=== PATIENT | female | born 1970 ===

== ENCOUNTER 2024-01-13 07:03 | Day surgery (SDC) | payer OTHER, SELFPAY ==
[2023-11-04 13:23] VITALS: BMI 26.4
[2023-12-28 13:33] VITALS: BMI 25.7
[2024-01-13 07:46] VITALS: BP 118/85; PULSE 70; RESP 16; TEMP 36.6; O2SAT 99; BMI 25.4
[2024-01-13] MEDS: LACTATED RINGERS 1,000 ML 150 ML IV CONT (08:03)
--- NOTE | 2024-01-13 08:07 | P.PNAN_ITS ---
Anes - Initial Pre Proc Eval Procedure: Operation Date: 01/13/24 09:00 Proposed Procedures p Colonoscopy - Nilo Mark MD Date/Time: 01/13/24 08:07 Surgeon: Nilo Mark MD Pre Op Diagnosis: History of colong polyps Patient Data Age: 53 Gender: F Height: 1.65 m Weight: 69.5 kg Last Vital Signs Temp 36.6 C 01/13/24 07:46 Pulse 70 01/13/24 07:46 Resp 16 01/13/24 07:46 BP 118/85 01/13/24 07:46 Pulse Ox 99 01/13/24 07:46 O2 Del Method Room Air 01/13/24 07:46 Allergies Allergy/AdvReac Type Severity Reaction Status Date / Time No Known Allergies Allergy Verified 01/13/24 07:45 Home Medications Medication Instructions Recorded Confirmed Type Lactobacillus 1 cap PO DAILY 12/28/23 01/13/24 History acidophilus-Bifidobac.animalis 2.5 billion cell capsule (Daily Probiotic) famotidine 20 mg tablet 20 mg PO DAILY 12/28/23 01/13/24 History multivit with minerals-iron 18 1 tablet PO DAILY 12/28/23 01/13/24 History mg-folic ac 400 mcg-vit K 25 mcg tablet (Adults Multivitamin) Patient hx anesthesia problems: none Family hx anesthesia problems: none Results Review: All pre-operative results and documents have been reviewed as part of the pre- operative evaluation. [facility] Past Medical History Medical History (Updated 01/13/24 @ 08:07 by Pastor Reyes MD) GERD (gastroesophageal reflux disease) Social History Social History Smoking packs per day: 0.5 Smoking cigarettes per day: 10.0 Years smoked: 30 Smoking pack-years: 15.00 Smoking status: Current every day smoker Tobacco type: cigarettes Alcohol intake: current Substance use: never Substance use type: does not use Living arrangements: with family Spiritual care concerns: No Anes - Eval Final PreProcedure Day of Procedure 01/13/24 08:07 Patient weight: normal Heart: regular rate and rhythm Lungs: clear to auscultation Airway: Mallampati scale class II Neurological: alert and oriented Last oral intake: >/= 8 hours ASA classification: II Emergent: no Anesthetic plan: proceed Anesthesia type and monitoring: general GIVS and standard monitoring Results Review: All pre-operative results and documents have been reviewed as part of the pre- operative evaluation. Informed Consent: The patient's anesthetic plan and its attendant risks and benefits were discussed with the patient/family/POA. Questions were solicited and answers provided to the satisfaction of the patient/family/POA.
--- NOTE | 2024-01-13 08:10 | PM.HPGS ---
History of Present Illness History of Present Illness Consent: Risks, benefits, and alternatives have been discussed and questions answered. Patient agrees to proceed with procedure. Chief complaint: History of colon polyp Narrative: Beronica Lucero is a 53 year old female presents for screening colonoscopy. Patient was found to have several cecal colon polyps at time of previous colonoscopy 6 years ago. Patient reports her current weight appetite and bowel movements are normal. Patient that his abdominal pain. She has had no bleeding. Family history is noncontributory. Review of Systems Review of Systems: All systems reviewed & are unremarkable except as noted in HPI and below PMFSH Past Medical History Medical History (Updated 01/13/24 @ 08:11 by Nilo Mark MD) GERD (gastroesophageal reflux disease) Social History Social History Smoking packs per day: 0.5 Smoking cigarettes per day: 10.0 Years smoked: 30 Smoking pack-years: 15.00 Smoking status: Current every day smoker Tobacco type: cigarettes Alcohol intake: current Substance use: never Substance use type: does not use Living arrangements: with family Spiritual care concerns: No Meds Home Medications and Allergies Home Medications Medication Instructions Recorded Confirmed Type Lactobacillus 1 cap PO DAILY 12/28/23 01/13/24 History acidophilus-Bifidobac.animalis 2.5 billion cell capsule (Daily Probiotic) famotidine 20 mg tablet 20 mg PO DAILY 12/28/23 01/13/24 History multivit with minerals-iron 18 1 tablet PO DAILY 12/28/23 01/13/24 History mg-folic ac 400 mcg-vit K 25 mcg tablet (Adults Multivitamin) Allergies Allergy/AdvReac Type Severity Reaction Status Date / Time No Known Allergies Allergy Verified 01/13/24 07:45 Vital Signs Vital Signs - 24 hr 01/13/24 07:46 Temperature 98 F Pulse Rate 70 Respiratory Rate 16 Blood Pressure 118/85 Pulse Oximetry 99 Oxygen Delivery Room Air Exam Narrative: Physical exam reveals patient to be alert. Vital signs stable. Exam is unremarkable. Patient is anicteric. Lungs are clear to auscultation and percussion heart is without murmur or extra sounds. Abdomen bowel sounds are present soft nontender with no hepatosplenomegaly. Digital external rectal exam is normal. Assessment and Plan Assessment and plan (1) History of colon polyps: Code(s): Z86.010 - Personal history of colonic polyps Status: Acute Assessment and Plan: Patient has a history of several benign polyps removed from the cecum in 2018. Plan for surveillance colonoscopy now and consider this at 5 year intervals.
[2024-01-13 09:10] VITALS: BP 104/68; PULSE 63; RESP 14; O2SAT 99
[2024-01-13 09:20] VITALS: BP 105/90; PULSE 72; RESP 20; O2SAT 99
[2024-01-13 09:30] VITALS: BP 127/79; PULSE 62; RESP 20; O2SAT 99
--- NOTE | 2024-01-13 09:39 | WPDANESPN ---
Anes - Prog Note Post-Op Date/Time: 01/13/24 09:39 Cardiovascular status: normal Respiratory status: normal Airway patency: baseline Mental status: baseline Post-Op hydration status: normal Vital Signs: Last Vital Signs Temp 36.6 C 01/13/24 07:46 Pulse 62 01/13/24 09:30 Resp 20 01/13/24 09:30 BP 127/79 01/13/24 09:30 Pulse Ox 99 01/13/24 09:30 O2 Del Method Room Air 01/13/24 09:30 Pain Score (VAS): 0/10 I/O: Intake & Output 01/12/24 01/13/24 01/13/24 23:59 07:59 15:59 Intake Total 700 Balance 700 Patient Feedback: Patient satisfied with anesthetic care.
== END 2024-01-13 09:39 | disposition home or self-care (01) ==
PROVIDERS: PCP Emergency Medicine; Visit Provider Internal Medicine Gastroenterology
PROC: 0DJD8ZZ Inspection of Lower Intestinal Tract, Via Natural or Artificial Opening Endoscopic (ICD-10-PCS; CPT 45378; principal; 2024-01-13 09:00)
DX: Z86.010 Personal history of colon polyps (principal); K64.8 Other hemorrhoids
CPT/HCPCS: 45378